=== PATIENT | female | born 1995 | race African-American/Black ===

== ENCOUNTER 2018-10-14 20:21 | Emergency (ER) | payer SELFPAY ==
[2018-10-14] MEDS ORDERED: HYDROcodone/Acetaminophen 5/325 mg Tablet ONE (21:20)
== END 2018-10-14 21:19 | disposition home or self-care (01) ==
LOC: ERS 20:21
DX: S02.5XXA Fracture of tooth (traumatic), initial encounter for closed fracture (principal); X58.XXXA Exposure to other specified factors, initial encounter
CPT/HCPCS: 99282

== ENCOUNTER 2019-06-02 14:47 | Emergency (ER) | payer SELFPAY ==
[2019-06-02] MEDS ORDERED: Cyclobenzaprine 10 MG TAB ONE (15:39)
[2019-06-02] MEDS ORDERED: Naproxen 500 MG TAB ONE (15:39)
== END 2019-06-02 15:55 | disposition home or self-care (01) ==
LOC: ERS 14:47
DX: S46.911A Strain of unspecified muscle, fascia and tendon at shoulder and upper arm level, right arm, initial encounter (principal); V43.63XA Car passenger injured in collision with pick-up truck in traffic accident, initial encounter
CPT/HCPCS: 99283

== ENCOUNTER 2019-08-16 13:53 | Emergency (ER) | payer SELFPAY ==
[2019-08-16 14:34] LABS: Hemoglobin 13.8 g/dL (12.0-16.0); Mean Corpuscular HGB CONC 32.8 g/dL (32.0-36.0); Mean Corpuscular Hemoglobin 31.9 pg (27.0-31.0); Mean Corpuscular Volume 97.5 fL (78.0-98.0); Mean Platelet Volume 7.9 fL (7.4-10.4); Platelet Count 352 thou/uL (130-400); RBC Distribution Width 12.5 % (11.5-14.5); Red Blood Cell (RBC) Count 4.33 mill/uL (4.20-5.40); White Blood Cell (WBC) Count 18.1 thou/uL (4.8-10.8)
[2019-08-16 14:43] LABS: BHCG - Serum Negative (NEGATIVE); Pregs Control Background? CLEAR/WHITE (CLR/WHITE); Pregs Control Bar Appear? YES (CONTROL BAR)
[2019-08-16 14:55] LABS: ALT (SGPT) 11 U/L (8-55); AST (SGOT) 16 U/L (5-34); Albumin 4.7 g/dL (3.5-5.0); Alkaline Phosphatase 88 U/L (40-110); Anion Gap 15 mmol/L (10-20); BUN (Urea Nitrogen) 15 mg/dL (7.0-18.7); Bilirubin, Total 0.3 mg/dL (0.2-1.2); Calc. Creatinine Clearance 0 mL/min (70-130); Calcium 10.1 mg/dL (7.8-10.44); Carbon Dioxide 22 mmol/L (22-29); Chloride 104 mmol/L (98-107); Estimated GFR-MDRD 83; Glucose 135 mg/dL (70-105); Lipase 12 U/L (8-78); Protein, Total 8.7 g/dL (6.0-8.3); Sodium 137 mmol/L (136-145)
[2019-08-16 15:02] LABS: Band 1 % (5-11); Lymphocytes 15 % (21-51); MDiff Complete? YES; Monocytes 7 % (0-10); Neutrophil 77 % (42-75); Platelet Morphology Comment Appears Adequate; RBC Morphology Normal
== END 2019-08-16 15:22 | disposition left against medical advice (07) ==
LOC: ERS 13:53
DX: Z53.21 Procedure and treatment not carried out due to patient leaving prior to being seen by health care provider (principal)
CPT/HCPCS: 36415; 80053; 83605; 83690; 84703; 85025

== ENCOUNTER 2019-09-30 10:34 | Emergency (ER) | payer MEDICAID, SELFPAY ==
[2019-09-30] MEDS ORDERED: Adacel (T-DAP) 0.5 ML SYRINGE ONE (11:25)
== END 2019-09-30 11:49 | disposition home or self-care (01) ==
LOC: ERS 10:34
DX: K08.89 Other specified disorders of teeth and supporting structures (principal); I10 Essential (primary) hypertension
CPT/HCPCS: 90715; 99281

== ENCOUNTER 2020-06-13 09:58 | Emergency (ER) | payer SELFPAY ==
[2020-06-13] MEDS ORDERED: Ondansetron PF 4 MG/2 ML Vial ONE ×2 (10:38→12:13)
[2020-06-13 10:39] LABS: #Basophils 0.1 thou/uL (0.0-0.2); #Lymphocytes 1.7 thou/uL (1.20-3.40); #Monocytes 0.8 thou/uL (0.11-0.59); #Neutrophils 8.7 thou/uL (1.40-6.50); %Basophils 0.7 % (0.0-1.0); %Eosinophils 0.3 % (0.0-10.0); %Lymphocytes 14.8 % (21.0-51.0); %Monocytes 6.8 % (0.0-10.0); %Neutrophils 77.4 % (42.0-75.0); Hemoglobin 13.4 g/dL (12.0-16.0); Mean Corpuscular HGB CONC 33.6 g/dL (32.0-36.0); Mean Corpuscular Hemoglobin 33.4 pg (27.0-31.0); Mean Corpuscular Volume 99.4 fL (78.0-98.0); Mean Platelet Volume 7.3 fL (7.4-10.4); Platelet Count 285 thou/uL (130-400); RBC Distribution Width 12.1 % (11.5-14.5); Red Blood Cell (RBC) Count 4.03 mill/uL (4.20-5.40); White Blood Cell (WBC) Count 11.2 thou/uL (4.8-10.8)
[2020-06-13 11:01] LABS: Anion Gap 14 mmol/L (10-20); BUN (Urea Nitrogen) 10 mg/dL (7.0-18.7); Calc. Creatinine Clearance 0 mL/min (70-130); Calcium 9.5 mg/dL (7.8-10.44); Carbon Dioxide 23 mmol/L (22-29); Chloride 104 mmol/L (98-107); Glucose 128 mg/dL (70-105); Lipase 20 U/L (8-78); Potassium 3.4 mmol/L (3.5-5.1); Sodium 138 mmol/L (136-145)
[2020-06-13 11:39] LABS: Bilirubin Negative (Negative); Blood, Urine Negative (Negative); Clarity Clear (Clear); Glucose, Urine (Dipstick) 50 mg/dL (Negative); Ketone, Urine 20 mg/dL (Negative); Leukocyte Negative Leu/uL (Negative); Nitrite Negative (Negative); Protein, Urine (Dipstick) Negative (Neg-Trace); Specific Gravity, Urine 1.012 (1.002-1.036); Urobilinogen Normal mg/dL (Less than 2)
[2020-06-13 11:41] LABS: Pregnancy Test - Urine (BHCG) Negative (Negative); Pregu Control Background? CLEAR/WHITE (CLR/WHITE); Pregu Control Bar Appear? YES (CONTROL BAR); Specific Gravity 1.012 (1.002-1.036)
[2020-06-13] MEDS ORDERED: Dicyclomine 20 MG TAB ONE (12:13)
[2020-06-13] MEDS ORDERED: Pantoprazole 40 MG VIAL ONE (12:13)
== END 2020-06-13 14:15 | disposition home or self-care (01) ==
LOC: ERS 09:58
DX: R11.2 Nausea with vomiting, unspecified (principal); R10.13 Epigastric pain; R19.7 Diarrhea, unspecified; I10 Essential (primary) hypertension
CPT/HCPCS: 80048; 81003; 81025; 83690; 85025; 96374; 96375; 96376; C9113; J2405

== ENCOUNTER 2020-08-12 23:22 | Emergency (ER) | payer SELFPAY | END 2020-08-13 00:12 | disposition home or self-care (01) | LOC: ERS 23:22 | DX: R21 Rash and other nonspecific skin eruption (principal); I10 Essential (primary) hypertension | CPT/HCPCS: 99282 ==

== ENCOUNTER 2020-11-25 22:36 | Emergency (ER) | payer OTHER, SELFPAY ==
[2020-11-26] MEDS ORDERED: HYDROcodone/Acetaminophen 10/325 mg Tablet ONE (00:32)
== END 2020-11-26 00:51 | disposition home or self-care (01) ==
LOC: ERS 22:36
DX: S62.636A Displaced fracture of distal phalanx of right little finger, initial encounter for closed fracture (principal); W01.0XXA Fall on same level from slipping, tripping and stumbling without subsequent striking against object, initial encounter
CPT/HCPCS: 29130

== ENCOUNTER 2021-01-15 21:19 | Emergency (ER) | payer SELFPAY | END 2021-01-15 23:47 | disposition home or self-care (01) | LOC: ERS 21:19 | DX: L73.9 Follicular disorder, unspecified (principal); I10 Essential (primary) hypertension | CPT/HCPCS: 99282 ==

== ENCOUNTER 2022-07-14 13:48 | Emergency (ER) | payer SELFPAY ==
[2022-07-14 14:47] LABS: #Monocytes 1.3 thou/uL (0.11-0.59); #Neutrophils 10.4 thou/uL (1.40-6.50); %Basophils 0.2 % (0.0-1.0); %Lymphocytes 12.7 % (21.0-51.0); %Monocytes 9.7 % (0.0-10.0); %Neutrophils 77.1 % (42.0-75.0); Hemoglobin 14.7 g/dL (12.0-16.0); Mean Corpuscular HGB CONC 33.6 g/dL (32.0-36.0); Mean Corpuscular Volume 95.2 fl (78.0-98.0); Mean Platelet Volume 9.7 fL (7.4-10.4); Platelet Count 309 10x3/uL (130-400); RBC Distribution Width 12.7 % (11.5-14.5); White Blood Cell (WBC) Count 13.4 10x3/uL (4.8-10.8)
[2022-07-14 15:07] LABS: BHCG - Serum Negative (NEGATIVE); Pregs Control Background? CLEAR/WHITE (CLR/WHITE); Pregs Control Bar Appear? YES (CONTROL BAR)
[2022-07-14 15:08] LABS: ALT (SGPT) 14 U/L (8-55); AST (SGOT) 17 U/L (5-34); Albumin 4.4 g/dL (3.5-5.0); Alkaline Phosphatase 65 U/L (40-110); Anion Gap 15 mmol/L (10-20); BUN (Urea Nitrogen) 17 mg/dL (7.0-18.7); Bilirubin, Total 0.7 mg/dL (0.2-1.2); Calc. Creatinine Clearance 0 mL/min (70-130); Calcium 9.9 mg/dL (7.8-10.44); Carbon Dioxide 22 mmol/L (22-29); Chloride 102 mmol/L (98-107); Estimated GFR 89; Globulin 2.8 g/dL (2.4-3.5); Glucose 89 mg/dL (70-105); Lipase 23 U/L (8-78); Potassium 3.9 mmol/L (3.5-5.1); Protein, Total 7.2 g/dL (6.0-8.3); Sodium 135 mmol/L (136-145)
[2022-07-14] MEDS ORDERED: Ondansetron PF 4 MG/2 ML Vial ONE (16:09)
== END 2022-07-14 18:31 | disposition home or self-care (01) ==
LOC: ERS 13:48
DX: R11.2 Nausea with vomiting, unspecified (principal); I10 Essential (primary) hypertension; D72.829 Elevated white blood cell count, unspecified
CPT/HCPCS: 36415; 80053; 83690; 84703; 85025; 96361; 96374; J2405

== ENCOUNTER 2022-11-19 09:41 | Outpatient (CLI) | payer MEDICAID ==
[2022-11-19 10:03] LABS: BHCG - Serum Negative (NEGATIVE); Pregs Control Background? CLEAR/WHITE (CLR/WHITE); Pregs Control Bar Appear? YES (CONTROL BAR)
== END 2022-11-19 09:42 | disposition home or self-care (01) ==
LOC: RAD 09:41
PROVIDERS: ATTEND Nurse Practitioner Women's Health
DX: N97.0 Female infertility associated with anovulation (principal); Z32.00 Encounter for pregnancy test, result unknown
CPT/HCPCS: 58340; 74740; 84703

== ENCOUNTER 2023-03-05 11:14 | Emergency (ER) | payer SELFPAY | END 2023-03-05 12:45 | disposition home or self-care (01) | LOC: ERS 11:14 | DX: R11.0 Nausea (principal); I10 Essential (primary) hypertension; Z79.899 Other long term (current) drug therapy | CPT/HCPCS: 99283 ==